=== PATIENT | female | born 1980 | race Caucasian/White ===

== ENCOUNTER 2017-02-24 06:08 | Emergency (ER) | payer MEDICAID ==
[~2017-02-24] VITALS: Ht 162.6 cm; Wt 73.0 kg
[2017-02-24 06:11] VITALS: Ht 162.6 cm; Wt 73.0 kg
[2017-02-24] MEDS ORDERED: morphine 2 MG INJ IV STA (06:38)
[2017-02-24] MEDS ORDERED: ONDANSETRON 4 MG INJ IV STA (06:38)
[2017-02-24 07:24] LABS: ADD SCAN DIFF NO
[2017-02-24 07:50] LABS: BASOPHILS % 0.4 % (0.0-2.0); EOSINOPHILS # 0.6 10^3/ul (0.0-0.5); EOSINOPHILS % 6.2 % (0.0-7.0); HEMATOCRIT 34.5 % (37.0-47.0); LYMPHOCYTES # 2.8 10^3/ul (0.8-2.9); LYMPHOCYTES % 31.5 % (15.0-51.0); MEAN CORPUSCULAR HEMOGLOBIN 27.1 pg (29.0-33.0); MEAN CORPUSCULAR HGB CONC 31.9 g/dl (32.0-37.0); MEAN PLATELET VOLUME 9.2 fl (7.4-10.4); MONOCYTE # 0.6 10^3/ul (0.3-0.9); MONOCYTES % 6.5 % (0.0-11.0); NEUTROPHIL # 4.9 10^3/ul (1.6-7.5); PLATELET COUNT 405 10^3/UL (140-415); RED BLOOD COUNT 4.06 10^6/ul (4.20-5.40); WHITE BLOOD COUNT 8.9 10^3/ul (4.8-10.8)
[2017-02-24 07:56] LABS: ADD UMIC YES; ALBUMIN 4.8 g/dl (3.3-4.9); ALBUMIN/GLOBULIN RATIO 1.54; CALCIUM 8.7 mg/dl (8.4-10.2); CREATININE 0.68 mg/dl (0.44-1.00); POTASSIUM 3.6 mmol/L (3.5-5.1); TOTAL PROTEIN 7.9 g/dl (6.1-8.1); UR ASCORBIC ACID NEGATIVE (NEGATIVE); UR BACTERIA FEW /HPF (NONE SEEN); UR BILIRUBIN (Dip) NEGATIVE (NEGATIVE); UR BLOOD (Dip) 3+ mg/dL (NEGATIVE); UR CLARITY SLIGHTLY CLOUDY (CLEAR); UR COLOR YELLOW (YELLOW); UR GLUCOSE (Dip) NEGATIVE (NEGATIVE); UR KETONES (Dip) NEGATIVE (NEGATIVE); UR LEUKOCYTE ESTERASE (Dip) 1+ Leu/ul (NEGATIVE); UR NITRITE (Dip) POSITIVE (NEGATIVE); UR RBC 4 /HPF (0-5); UR SPECIFIC GRAVITY (Dip) 1.026 (1.003-1.030); UR TOTAL PROTEIN (Dip) NEGATIVE (NEGATIVE); UR UROBILINOGEN (Dip) NEGATIVE (NEGATIVE)
[2017-02-24] MEDS ORDERED: SOD CHLORIDE 0.9% 1,000 ML IV ONE (08:03)
--- NOTE | 2017-02-24 08:03 | RADRPT ---
PROCEDURE: ULTRASOUND LIMITED ABDOMEN CLINICAL INDICATION: 36-year-old female with abdominal pain. TECHNIQUE: Multiple sonographic of the right upper quadrant of the abdomen were obtained. The imag es were reviewed on a PACS workstation. COMPARISON: None. FINDINGS: The pancreas is partially visualized and is otherwise without abnormal echogenicity. The liver displays normal echogenicity. The liver measures 18.9 cm in length. No evidence of intrah epatic biliary ductal dilatation is seen. The portal and hepatic veins are unremarkable. The gallbladder retains a couple of shadowing gallstones. The gallbladder wall is mildly thickened measuring 3.9 mm. No pericholecystic fluid is seen. The common bile duct measures 5.4 mm and is not dilated. The right kidney displays normal echogenicity. The right kidney measures 11.5 x 4.3 x 4.0 cm. No margie iectasis or hydronephrosis is seen. No free fluid is seen. IMPRESSION: Cholelithiasis with mildly thickened gallbladder wall. .Micky Barrett MD, MD Date Time Electronically viewed and signed by .Micky Barrett MD, on 02/24/2017 08:02 .M/
[2017-02-24] MEDS ORDERED: DICLOFENAC SODIUM 37.5 MG/ML VIAL IV STA (08:12)
[2017-02-24] MEDS ORDERED: CEFTRIAXONE 1 GM/50 ML (PMX) 50 ML IVPB ONE (08:30)
[2017-02-24] MEDS ORDERED: TRAM50TA2 PO (09:09)
[2017-02-24] MEDS ORDERED: CIPR500T4 PO (09:09)
--- NOTE | 2017-02-24 09:18 | ERD ---
ER Documentation Chief Complaint Date/Time DATE: 02/24/17 TIME: 09:15 Chief Complaint upper abd pain radaiting to back x 2 days HPI This 36-year-old female complains of a 2 day history of abdominal pain. She points to the epigastric area and states that it feels that it radiates from the back. She points to the upper right and upper left abdomen as the primary source of pain although appears to be more on the left. She denies any fever nausea vomiting or urinary complaints. ROS All systems reviewed and are negative except as per history of present illness. Medications Home Meds Active Scripts Ciprofloxacin Hcl* (Ciprofloxacin Hcl*) 500 Mg Tablet, 500 MG PO BID for 10 Days , TAB Prov:NEL HALL MD 02/24/17 Tramadol HCl (Tramadol HCl) 50 Mg Tablet, 50 MG PO Q4 Y for PAIN, #15 TAB Prov:NEL HALL MD 02/24/17 Allergies Allergies: Coded Allergies: No Known Allergy (Unverified , 02/24/17) PMhx/Soc Medical and Surgical Hx: pt denies Surgical Hx Hx Respiratory Disorders: Yes (ASTHMA ) Hx Alcohol Use: No Hx Substance Use: No Hx Tobacco Use: No Smoking Status: Never smoker Physical Exam Vitals Vital Signs Date Time Temp Pulse Resp B/P Pulse Ox O2 Delivery O2 Flow Rate FiO2 02/24/17 06:11 97.8 82 20 148/90 100 Physical Exam Const: [] Alert, [id number] per Head: Atraumatic Eyes: Normal Conjunctiva ENT: Normal External Ears, Nose and Mouth. Neck: Full range of motion..~ No meningismus. Resp: Clear to auscultation bilaterally Cardio: Regular rate and rhythm, no murmurs Abd: Soft, tenderness primarily in the left upper abdomen possibly the left lateral abdomen. Mild right upper quadrant tenderness. No tenderness at McBurney's point no rebound., non distended. Normal bowel sounds Skin: No petechiae or rashes Back: No midline or flank tenderness Ext: No cyanosis, or edema Neur: Awake and alert Psych: Normal Mood and Affect Result Diagram: 02/24/17 0650 02/24/17 0650 Results 24 hrs Laboratory Tests Test 02/24/17 06:50 White Blood Count 8.910^3/ul Red Blood Count 4.0610^6/ul Hemoglobin 11.0g/dl Hematocrit 34.5% Mean Corpuscular Volume 85.0fl Mean Corpuscular Hemoglobin 27.1pg Mean Corpuscular Hemoglobin Concent 31.9g/dl Red Cell Distribution Width 14.0% Platelet Count 87301^3/UL Mean Platelet Volume 9.2fl Neutrophils % 55.0% Lymphocytes % 31.5% Monocytes % 6.5% Eosinophils % 6.2% Basophils % 0.4% Nucleated Red Blood Cells % 0.0/100WBC Neutrophils # 4.910^3/ul Lymphocytes # 2.810^3/ul Monocytes # 0.610^3/ul Eosinophils # 0.610^3/ul Basophils # 0.010^3/ul Nucleated Red Blood Cells # 0.010^3/ul Urine Color YELLOW Urine Clarity SLIGHTLY CLOUDY Urine pH 5.0 Urine Specific [place] 1.026 Urine Ketones NEGATIVEmg/dL Urine Nitrite POSITIVEmg/dL Urine Bilirubin NEGATIVEmg/dL Urine Urobilinogen NEGATIVEmg/dL Urine Leukocyte Esterase 1+Christiano/ul Urine Microscopic RBC 4/HPF Urine Microscopic WBC 10/HPF Urine Bacteria FEW/HPF Urine Hemoglobin 3+mg/dL Urine Glucose NEGATIVEmg/dL Urine Total Protein NEGATIVEmg/dl Sodium Level 139mmol/L Potassium Level 3.6mmol/L Chloride Level 104mmol/L Carbon Dioxide Level 27mmol/L Anion Gap 12 Blood Urea Nitrogen 10mg/dl Creatinine 0.68mg/dl Glucose Level 104mg/dl Calcium Level 8.7mg/dl Total Bilirubin 0.0mg/dl Direct Bilirubin 0.00mg/dl Indirect Bilirubin 0.0mg/dl Aspartate Amino Transf (AST/SGOT) 15IU/L Alanine Aminotransferase (ALT/SGPT) 20IU/L Alkaline Phosphatase 88IU/L Total Protein 7.9g/dl Albumin 4.8g/dl Globulin 3.10g/dl Albumin/Globulin Ratio 1.54 Lipase 116U/L Current Medications Medications (Trade) Dose Ordered Sig/Sushma Route PRN Reason Start Time Stop Time Status Last Admin Dose Admin Morphine Sulfate (morphine) 2 mg ONCE STAT IV 02/24/17 06:38 02/24/17 06:40 DC 02/24/17 06:52 Ondansetron HCl 4 mg 4 mg ONCE STAT IV 02/24/17 06:38 02/24/17 06:40 DC 02/24/17 06:52 Ceftriaxone Sodium 50 ml @ 100 mls/hr ONCE ONCE IVPB 02/24/17 08:30 02/24/17 08:59 DC 02/24/17 08:10 Sodium Chloride (NS) 1,000 ml @ 0 mls/hr Q0M ONCE IV 02/24/17 08:03 02/24/17 08:05 DC 02/24/17 08:09 Diclofenac Sodium (Dyloject) 37.5 mg ONCE STAT IV 02/24/17 08:12 02/24/17 08:13 DC 02/24/17 08:33 Procedures/MDM CBC shows normal white blood cell count and hemoglobin of 11. CMP and lipase is normal. Urine shows positive leukocytes, nitrites, bacteria and white blood cells. Patient was given 1 L normal saline IV, Tylenol 650 mg by mouth AND DYLOJECT 37.5 IV as well as morphine 2 mg IV initially. After review of urine patient was given Rocephin 1 g IV. Right upper quadrant ultrasound shows gallstones with mild gallbladder wall thickening. Serial abdominal exam shows persistent left upper quadrant tenderness although mild. She has some minimal right upper quadrant tenderness without exquisite Butts sign. Patient presents with upper abdominal pain of uncertain etiology for last 2 days. She does have gallstones with possible gallbladder wall thickening but no additional signs to suggest cholecystitis such as leukocytosis or transaminitis or signs of obstruction. Should she has definite signs of UTI which may be a cause of her pain. Patient does not appear to have signs and symptoms of cholecystitis warranting further evaluation will be monitored closely at home and treated with tramadol and Cipro. She is advised to drink clear fluids and will be referred to [facility] for primary care. She is advised to return for fevers, vomiting, worsening localized abdominal pain especially in the right upper quadrant or lower abdomen. The patient was stable with no new complaints during the ER course. Clinically, there is no current evidence to suggest meningitis, sepsis, acute abdomen, pneumonia, acute coronary syndrome, pulmonary embolism, or any other emergent condition appearing to require further evaluation or hospitalization. The patient should certainly return for any new or worsening symptoms per the aftercare instructions. They should otherwise follow-up with her primary care doctor for reevaluation this week. Departure Diagnosis: Primary Impression: Gallstones Additional Impressions: UTI (urinary tract infection) Urinary tract infection type: acute cystitis Hematuria presence: without hematuria Qualified Code: N30.00 - Acute cystitis without hematuria Abdominal pain Abdominal location: upper abdomen, unspecified Qualified Code: R10.10 - Pain of upper abdomen Condition: Stable Patient Instructions: Abdominal Pain, What Are Gallstones?, Understanding Urinary Tract Infections (UTIs) Referrals: WALDEMAR PEARSON MD, KAMBIZ M.D. LOMIS, [place] MD [facility] () Usted se kaufman hecho un examen mdico de control que le indica que no est en tevin condicin que requiera tratamiento urgente en el Departamento de Emergencia. Un estudio ms profundo y el tratamiento de lima condicin pueden esperar sin ningn riesgo hasta que usted sea atendida/o en el consultorio de lima mdico o tevin cl barry. Es responsabilidad suya arreglar tevin franklin para el seguimiento del zaki. MANEJO DE CONDICIONES NO URGENTES EN EL FUTURO 1) Si usted tiene un mdico de atencin primaria: Usted debera llamar a lima mdico de atencin primaria antes de venir al departamento de emergencia. Despus de las horas de consultorio, lima doctor o lima asociado/a est disponible por telfono. El mdico o enfermero de alena en el servicio telefnico puede asesorarle por harjinder medio para atender el problema, o zaki contrario se puede programar tevin franklin. 2) Si usted no tiene un mdico de atencin primaria: Llame al mdico o clnica de referencia que aparece abajo geraldo las horas de consultorio para hacer tevin franklin para que le vean. CLINICAS: [facility] [phone] [address] [facility] 917 [phone] [address] [facility] 861 [phone] [facility] [phone] [place] [id number] [phone] [facility]. [phone] [address] Additional Instructions: TIENE INFECCION EN ORINA Y PIEDRAS EN VESICULA. VAMOS A TRATAR PARA INFECCION. Cheque otro vez con lima doctor primario en el proximo negrete or regresa para mas o nueva simptomas. RECOMIENDO UN CIRUJANO PARA PIEDRAS. REGRESA PARA FIEBRE, MAS DOLOR , NUEVA SIMPTOMAS. NEL HALL MD Feb 24, 2017 09:18
[2017-02-24] MEDS ORDERED: ALBU18HF INHALATION (09:39)
[2017-02-24 09:43] VITALS: BP 113/65; PULSE 86; RESP 16
== END 2017-02-24 09:40 | disposition home or self-care (01) ==
LOC: FTE 06:08
DX: K80.20 Calculus of gallbladder without cholecystitis without obstruction (principal); N30.00 Acute cystitis without hematuria; R10.12 Left upper quadrant pain; J45.909 Unspecified asthma, uncomplicated
CPT/HCPCS: 36415; 76705; 80053; 81001; 83690; 85025; 96374; 96375; J0696; J2270; J2405; J7030; Z7502; Z7610

== ENCOUNTER 2017-03-08 23:36 | Emergency (ER) | payer MEDICAID ==
[~2017-03-08] VITALS: Ht 165.1 cm; Wt 71.5 kg
[~2017-03-08 23:36] MED LIST: ALBU18HF INHALATION; CIPR500T4 PO; TRAM50TA2 PO
[2017-03-08 23:44] VITALS: Ht 165.1 cm; Wt 71.5 kg
--- NOTE | 2017-03-09 00:12 | ERA ---
ER Documentation Chief Complaint Date/Time DATE: 03/09/17 TIME: 00:12 Chief Complaint swelling/pain anterior neck x 1 day. no sob HPI The patient is a 36-year-old female, presenting to the ER because of swollen anterior neck for 1 day, sore throat, intermittent cough, left ear pain for 1 day. She has similar symptoms previously, denies fever, chills, chest pain, dyspnea, abdominal pain, vomiting, dysuria, diarrhea. She denies any weight loss or weight gain recently. She does not smoke nor drink, denies any history of thyroid disease in the family Past medical history: Cholelithiasis, asthma Past surgical history: None ROS All systems reviewed and are negative except as per history of present illness. Medications Home Meds Active Scripts Albuterol Sulfate* (Ventolin HFA*) 18 Gm Hfa.aer.ad, 2 PUFF INHALATION Q4H for 5 Days, #1 INHALER Prov:NEL HALL MD 02/24/17 Ciprofloxacin Hcl* (Ciprofloxacin Hcl*) 500 Mg Tablet, 500 MG PO BID for 10 Days , TAB Prov:NEL HALL MD 02/24/17 Tramadol HCl (Tramadol HCl) 50 Mg Tablet, 50 MG PO Q4 Y for PAIN, #15 TAB Prov:NEL HALL MD 02/24/17 Allergies Allergies: Coded Allergies: No Known Allergy (Unverified , 03/08/17) PMhx/Soc Medical and Surgical Hx: pt denies Surgical Hx Hx Respiratory Disorders: Yes (ASTHMA ) Hx Alcohol Use: No Hx Substance Use: No Hx Tobacco Use: No Smoking Status: Never smoker Physical Exam Vitals Vital Signs Date Time Temp Pulse Resp B/P Pulse Ox O2 Delivery O2 Flow Rate FiO2 03/08/17 23:44 97.6 95 20 120/80 99 Physical Exam Const: No acute distress. Head: Atraumatic. Eyes: Normal Conjunctiva. ENT: Normal External Ears, Nose and Mouth. Neck: Full range of motion. No meningismus. Edematous anterior neck, mild tenderness Resp: Clear to auscultation bilaterally. Cardio: Regular rate and rhythm. Abd: Soft, non distended, normal bowel sounds, non tender. Skin: No petechiae or rashes. Back: No midline or flank tenderness. Ext: No cyanosis, or edema. Neur: Awake and alert. No focal deficit Psych: Normal Mood and Affect. Result Diagram: 03/09/17 0055 03/09/17 0055 Results 24 hrs Laboratory Tests Test 03/09/17 00:55 White Blood Count 11.710^3/ul Red Blood Count 4.2510^6/ul Hemoglobin 11.8g/dl Hematocrit 35.7% Mean Corpuscular Volume 84.0fl Mean Corpuscular Hemoglobin 27.8pg Mean Corpuscular Hemoglobin Concent 33.1g/dl Red Cell Distribution Width 13.9% Platelet Count 49263^3/UL Mean Platelet Volume 9.2fl Neutrophils % 59.9% Lymphocytes % 25.0% Monocytes % 8.0% Eosinophils % 6.4% Basophils % 0.4% Nucleated Red Blood Cells % 0.0/100WBC Neutrophils # 7.010^3/ul Lymphocytes # 2.910^3/ul Monocytes # 0.910^3/ul Eosinophils # 0.810^3/ul Basophils # 0.110^3/ul Nucleated Red Blood Cells # 0.010^3/ul Sodium Level 140mmol/L Potassium Level 3.9mmol/L Chloride Level 96mmol/L Carbon Dioxide Level 30mmol/L Anion Gap 18 Blood Urea Nitrogen 11mg/dl Creatinine 0.84mg/dl Glucose Level 89mg/dl Calcium Level 9.6mg/dl Thyroid Stimulating Hormone (TSH) 2.970MIU/L Procedures/[place] [id number] Radiology Main Line: [phone] DIAGNOSTIC IMAGING REPORT Patient: LADY RAY : 1980 Age: 36 Sex: F MR #: [id number] DOS: 03/09/17 0020 Ordering MD: COLT URIBE MD Location: [facility] Room/Bed: PROCEDURE: Ultrasound soft tissue neck CLINICAL INDICATION: Swollen neck TECHNIQUE: Ultrasound of the right and left neck was performed. COMPARISON: None available FINDINGS: There is appearance of a complex cystic left thyroid mass or immediately adjacent masses measuring 6.6 x 3 x 3.6 cm with the largest cystic component containing internal echoes measuring 3.6 x 3 x 3.9 cm with vascular flow in the solid component and the suggestion of calcifications in the solid component. IMPRESSION: Complex cystic and solid left thyroid mass described above. Consider biopsy. RPTAT: HJES .Salvador aCrver MD, MD Date Time Electronically viewed and signed by .Salvador Carver MD, MD on 03/09/2017 01:15 .S/ CC: COLT URIBE MD MEDICAL MAKING DECISION: The patient is a 36-year-old female, presenting with acute thyroid mass. She is stable for outpatient follow-up The differential diagnoses considered include but are not limited to malignancy , goiter, infection, abscess Departure Diagnosis: Primary Impression: Thyroid mass of unclear etiology Additional Impression: Anemia Condition: Good Comments I discussed the findings with the patient. 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 I instructed the patient through a nursing staff who speaks fluent Latvian and she understands the importance of follow-up COLT URIBE MD Mar 09, 2017 00:12
--- NOTE | 2017-03-09 01:15 | RADRPT ---
PROCEDURE: Ultrasound soft tissue neck CLINICAL INDICATION: Swollen neck TECHNIQUE: Ultrasound of the right and left neck was performed. COMPARISON: None available FINDINGS: There is appearance of a complex cystic left thyroid mass or immediately adjacent masses measuring 6 .6 x 3 x 3.6 cm with the largest cystic component containing internal echoes measuring 3.6 x 3 x 3.9 cm with vascular flow in the solid component and the suggestion of calcifications in the solid comp onent. IMPRESSION: Complex cystic and solid left thyroid mass described above. Consider biopsy. RPTAT: HJES .Salvador Carver MD, MD Date Time Electronically viewed and signed by .Salvador Carver MD, MD on 03/09/2017 01:15 .S/
[2017-03-09 01:28] LABS: ADD SCAN DIFF NO
[2017-03-09 01:46] LABS: BASOPHIL # 0.1 10^3/ul (0.0-0.1); BASOPHILS % 0.4 % (0.0-2.0); EOSINOPHILS # 0.8 10^3/ul (0.0-0.5); EOSINOPHILS % 6.4 % (0.0-7.0); HEMATOCRIT 35.7 % (37.0-47.0); HEMOGLOBIN 11.8 g/dl (12.0-16.0); LYMPHOCYTES # 2.9 10^3/ul (0.8-2.9); MEAN CORPUSCULAR HEMOGLOBIN 27.8 pg (29.0-33.0); MEAN CORPUSCULAR HGB CONC 33.1 g/dl (32.0-37.0); MEAN PLATELET VOLUME 9.2 fl (7.4-10.4); MONOCYTE # 0.9 10^3/ul (0.3-0.9); NEUTROPHILS % 59.9 % (39.0-77.0); PLATELET COUNT 384 10^3/UL (140-415); RED BLOOD COUNT 4.25 10^6/ul (4.20-5.40); RED CELL DISTRIBUTION WIDTH 13.9 % (11.5-14.5); WHITE BLOOD COUNT 11.7 10^3/ul (4.8-10.8)
[2017-03-09 01:51] LABS: CALCIUM 9.6 mg/dl (8.4-10.2); CREATININE 0.84 mg/dl (0.44-1.00); POTASSIUM 3.9 mmol/L (3.5-5.1)
[2017-03-09 02:22] LABS: THYROID STIMULATING HORMONE 2.97 MIU/L (0.465-4.680)
[2017-03-09 03:35] VITALS: BP 128/83; PULSE 93; RESP 20
== END 2017-03-09 03:36 | disposition home or self-care (01) ==
LOC: FTE 23:36
DX: E07.89 Other specified disorders of thyroid (principal); D64.9 Anemia, unspecified; J45.909 Unspecified asthma, uncomplicated
CPT/HCPCS: 76536; 80048; 84443; 85025; Z7502

== ENCOUNTER 2017-05-10 04:40 | Emergency (ER) | payer SELFPAY ==
[~2017-05-10] VITALS: Ht 165.1 cm; Wt 72.5 kg
[2017-05-10 04:49] VITALS: Ht 165.1 cm; Wt 72.5 kg
[2017-05-10] MEDS ORDERED: KETOROLAC 15 MG INJ IV STA (06:24)
[2017-05-10] MEDS ORDERED: SOD CHLORIDE 0.9% 1,000 ML IV STA (06:24)
[2017-05-10] MEDS ORDERED: ONDANSETRON 4 MG INJ IV STA (06:24)
[2017-05-10 06:53] LABS: BASOPHIL # 0.1 10^3/ul (0.0-0.1); BASOPHILS % 0.5 % (0.0-2.0); EOSINOPHILS # 0.4 10^3/ul (0.0-0.5); EOSINOPHILS % 4.7 % (0.0-7.0); LYMPHOCYTES # 2.1 10^3/ul (0.8-2.9); LYMPHOCYTES % 23.1 % (15.0-51.0); MEAN CORPUSCULAR HEMOGLOBIN 27.8 pg (29.0-33.0); MEAN CORPUSCULAR HGB CONC 33.3 g/dl (32.0-37.0); MEAN CORPUSCULAR VOLUME 83.3 fl (82.0-101.0); MEAN PLATELET VOLUME 9.4 fl (7.4-10.4); MONOCYTE # 0.6 10^3/ul (0.3-0.9); MONOCYTES % 6.9 % (0.0-11.0); NEUTROPHILS % 64.6 % (39.0-77.0); PLATELET COUNT 448 10^3/UL (140-415); RED BLOOD COUNT 4.32 10^6/ul (4.20-5.40); RED CELL DISTRIBUTION WIDTH 14.1 % (11.5-14.5); WHITE BLOOD COUNT 9.1 10^3/ul (4.8-10.8)
[2017-05-10 07:22] LABS: ALBUMIN 4.5 g/dl (3.3-4.9); ALBUMIN/GLOBULIN RATIO 1.15; BILIRUBIN,INDIRECT 0.2 mg/dl (0-1.1); BILIRUBIN,TOTAL 0.2 mg/dl (0.2-1.3); CALCIUM 8.5 mg/dl (8.4-10.2); CREATININE 0.6 mg/dl (0.44-1.00); POTASSIUM 5.1 mmol/L (3.5-5.1); TOTAL PROTEIN 8.4 g/dl (6.1-8.1)
--- NOTE | 2017-05-10 07:59 | RADRPT ---
PROCEDURE: US Abdomen (right upper quadrant). CLINICAL INDICATION: Abdominal pain. TECHNIQUE: Multiple real-time longitudinal and transverse images of the right upper quadrant of th e abdomen were acquired utilizing a curved array transducer. Images were reviewed on a high-resoluti on PACS workstation. COMPARISON: Right upper quadrant ultrasound dated 02/24/2017 FINDINGS: The liver is normal in size and demonstrates normal echogenicity. No focal intrahepatic mass is id entified. The gallbladder contains stones. The gallbladder wall is prominent. No intra or extrahep atic biliary dilatation is seen. The common bile duct measures 4.5 mm in maximal dimension. The por reji and hepatic veins are patent demonstrating normal directional flow. The visualized portions of t he pancreas are unremarkable with obscuration of the tail of the pancreas. No free fluid is identif ied. The right kidney measures 11.8 cm in length. There is normal echogenicity within the right kidney. There is no perinephric fluid collection. No hydronephrosis, mass, or calculus is seen. IMPRESSION: 1. Cholelithiasis. The gallbladder wall is upper limits of normal in thickness. No significant in terval change. 2. Otherwise, unremarkable right upper quadrant ultrasound. RPTAT: HH .Alberta Renteria MD, Date Time Electronically viewed and signed by .Alberta Renteria MD, on 05/10/2017 07:58 .G/
[2017-05-10] MEDS ORDERED: OXYC-279 PO (08:23)
[2017-05-10] MEDS ORDERED: ONDA4TAB8 PO (08:23)
[2017-05-10] MEDS ORDERED: AZIT500T3 PO (08:23)
[2017-05-10] MEDS ORDERED: CEFTRIAXONE 1 GM INJ IM ONE (08:30)
--- NOTE | 2017-05-10 09:22 | ERA ---
ER Documentation Chief Complaint Date/Time DATE: 05/10/17 TIME: 09:05 Chief Complaint abd pain x 1 day. n/v -diarrhea HPI 36-year-old woman with a history of cholelithiasis presents with epigastric and right upper quadrant abdominal pain similar previous episodes, she states she has these pain episodes about once per month for the last few years. She is also had some nausea no vomiting or diarrhea, no hemoptysis, no blood per rectum or melena. Patient's was recently diagnosed with sexually transmitted bacterial urethritis and was treated with antibiotics, patient states she has not had sex in about 1 month, And denies vaginal discharge. ROS All systems reviewed and are negative except as per history of present illness. Medications Home Meds Active Scripts Azithromycin* (Zithromax*) 500 Mg Tablet, 1000 MG PO ONCE, #1 TAB Prov:CYNDEE LOMBARDI MD 05/10/17 Ondansetron Hcl* (Zofran*) 4 Mg Tablet, 4 MG PO TID for VOMITTING, #15 TAB Prov:CYNDEE LOMBARDI MD 05/10/17 Oxycodone HCl/Acetaminophen (Percocet 5-325 mg Tablet) 1 Each Tablet, 1 EACH PO TID for PAIN, #12 TAB Prov:CYNDEE LOMBARDI MD 05/10/17 Albuterol Sulfate* (Ventolin HFA*) 18 Gm Hfa.aer.ad, 2 PUFF INHALATION Q4H for 5 Days, #1 INHALER Prov:NEL HALL MD 02/24/17 Ciprofloxacin Hcl* (Ciprofloxacin Hcl*) 500 Mg Tablet, 500 MG PO BID for 10 Days , TAB Prov:NEL HALL MD 02/24/17 Tramadol HCl (Tramadol HCl) 50 Mg Tablet, 50 MG PO Q4 Y for PAIN, #15 TAB Prov:NEL HALL MD 02/24/17 Allergies Allergies: Coded Allergies: No Known Allergy (Unverified , 05/10/17) PMhx/Soc Cholelithiasis Hx Respiratory Disorders: Yes (ASTHMA ) Hx Alcohol Use: No Hx Substance Use: No Hx Tobacco Use: No Smoking Status: Never smoker FmHx Family History: No diabetes Physical Exam Vitals Vital Signs Date Time Temp Pulse Resp B/P Pulse Ox O2 Delivery O2 Flow Rate FiO2 05/10/17 07:17 67 18 119/85 97 Room Air 05/10/17 04:49 98.5 102 18 159/90 97 Physical Exam GENERAL: Well-developed, well-nourished, well-hydrated, in no apparent distress , looks nontoxic in appearance HEENT: Moist mucous membranes, pink conjunctiva, no cervical spine tenderness or step-off deformities, no goiter, no jaundice or icterus, extraocular movements intact without pain. No submandibular induration, and no pharyngeal erythema NEURO: Alert and oriented 3, cranial nerves II through XII intact bilaterally, pupils equal round reactive to light, no focal deficits or facial asymmetry, sensation intact distally Strength 5/5 in upper and lower extremities bilaterally CARDIAC: Regular rate and rhythm, no murmurs rubs or gallops LUNGS: Clear bilaterally no wheezing crackles or stridor ABDOMEN: Soft nontender, no guarding, no rigidity, no rebound, no psoas sign no obturator sign. Normoactive bowel sounds SKIN: Warm and dry to touch, no abrasions, contusions, or hematomas, no lacerations, no ecchymosis, no target lesions, and without ulcers EXTREMITIES: No clubbing cyanosis or edema, calves are bilaterally symmetrical, no Homans sign, no popliteal cord sign. Distal pulses equal and bilateral PSYCH: Normal affect without agitation or irritability Result Diagram: 05/10/17 0630 05/10/17 0630 Results 24 hrs Laboratory Tests Test 05/10/17 06:30 White Blood Count 9.110^3/ul Red Blood Count 4.3210^6/ul Hemoglobin 12.0g/dl Hematocrit 36.0% Mean Corpuscular Volume 83.3fl Mean Corpuscular Hemoglobin 27.8pg Mean Corpuscular Hemoglobin Concent 33.3g/dl Red Cell Distribution Width 14.1% Platelet Count 06169^3/UL Mean Platelet Volume 9.4fl Neutrophils % 64.6% Lymphocytes % 23.1% Monocytes % 6.9% Eosinophils % 4.7% Basophils % 0.5% Nucleated Red Blood Cells % 0.0/100WBC Neutrophils # (Manual) 5.910^3/ul Lymphocytes # 2.110^3/ul Monocytes # 0.610^3/ul Eosinophils # 0.410^3/ul Basophils # 0.110^3/ul Nucleated Red Blood Cells # 0.010^3/ul Sodium Level 138mmol/L Potassium Level 5.1mmol/L Chloride Level 103mmol/L Carbon Dioxide Level 27mmol/L Anion Gap 13 Blood Urea Nitrogen 9mg/dl Creatinine 0.60mg/dl Glucose Level 107mg/dl Calcium Level 8.5mg/dl Total Bilirubin 0.2mg/dl Direct Bilirubin 0.00mg/dl Indirect Bilirubin 0.2mg/dl Aspartate Amino Transf (AST/SGOT) 40IU/L Alanine Aminotransferase (ALT/SGPT) 8IU/L Alkaline Phosphatase 98IU/L Total Protein 8.4g/dl Albumin 4.5g/dl Globulin 3.90g/dl Albumin/Globulin Ratio 1.15 Lipase 102U/L Current Medications Medications (Trade) Dose Ordered Sig/Sushma Route PRN Reason Start Time Stop Time Status Last Admin Dose Admin Sodium Chloride (NS) 1,000 ml @ 1,000 mls/hr Q1H STAT IV 05/10/17 06:24 05/10/17 07:23 DC 05/10/17 07:13 Ondansetron HCl (Zofran Inj) 4 mg ONCE STAT IV 05/10/17 06:24 05/10/17 06:27 DC 05/10/17 07:08 Ketorolac Tromethamine (Toradol) 15 mg ONCE STAT IV 05/10/17 06:24 05/10/17 06:27 DC 05/10/17 07:11 Ceftriaxone Sodium (Rocephin) 1 gm ONCE ONCE IM 05/10/17 08:30 05/10/17 08:31 DC 05/10/17 08:47 Procedures/MDM IV line was established 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 Patient was afebrile. I administered 1 L normal saline intravenously, Toradol 15 mg IV, Zofran 4 mg IV , Percocet 1 tablet p.o. with good response. Gallbladder ultrasound was performed revealing cholelithiasis. Please refer to radiologist dictation for full report. CBC and electrolytes are normal, liver function tests were normal. Urinalysis was negative for infection, test was negative. GC chlamydia test was also ordered results are pending and I will follow-up although given her social history she was treated here with antibiotics for suspected sexually transmitted bacterial urethritis. I administered ceftriaxone 1 g IV here in the ER and will be treating her with azithromycin orally as an outpatient. Differential diagnoses considered, included but not limited to acute coronary syndrome, pulmonary embolism, aortic dissection, abdominal aortic aneurysm, sepsis, stroke, meningitis, encephalitis, pneumonia, appendicitis, cholecystitis , bowel obstruction, pyelonephritis, nephrolithiasis, cystitis, as well as metabolic, hematologic, and electrolyte abnormalities. As well as abscess, cellulitis, fractures, and dislocations. Patient feels much better at this time, and vital signs are normal, symptoms have improved. I did give strict instructions to return to the ED if symptoms continue or worsen, patient will otherwise follow-up with primary care physician. Patient understood instructions and agreed to plan. Disclaimer: Inadvertent spelling and grammatical errors are likely due to EHR/ dictation software use and do not reflect on the overall quality of patient care. Also, please note that the electronic time recorded on this note does not necessarily reflect the actual time of the patient encounter. Departure Diagnosis: Primary Impression: Abdominal pain Qualified Code: R10.11 - Right upper quadrant abdominal pain Additional Impression: Cholelithiasis Qualified Code: K80.20 - Calculus of gallbladder without cholecystitis without obstruction Condition: Good Patient Instructions: Biliary Colic With Gallstone (Confirmed) Referrals: DINO OSBORNE M.D., DAVID MD May 10, 2017 09:15
[2017-05-10 10:02] VITALS: BP 117/56; PULSE 65; RESP 16; TEMP 98.2
== END 2017-05-10 10:02 | disposition home or self-care (01) ==
LOC: E/R 04:40
DX: R10.11 Right upper quadrant pain (principal); K80.20 Calculus of gallbladder without cholecystitis without obstruction; J45.909 Unspecified asthma, uncomplicated
CPT/HCPCS: 36415; 76705; 80053; 83690; 85025; 96361; 96372; 96374; 96375; 99285; J0696; J1885; J2405; J7030

== ENCOUNTER 2017-05-22 05:03 | Inpatient (IN) | payer MEDICAID ==
[2017-05-22] VITALS (13 sets, daily range): BP systolic 103–153; BP diastolic 68–97; PULSE 70–92; RESP 17–23; Ht 162.6 cm; Wt 73.5 kg
[~2017-05-22] VITALS: Ht 162.6 cm; Wt 73.5 kg
[~2017-05-22 05:03] MED LIST changes: +AZIT500T3 PO; +ONDA4TAB8 PO; +OXYC-279 PO
[2017-05-22] MEDS ORDERED: ONDANSETRON 4 MG INJ IV STA (06:52)
[2017-05-22] MEDS ORDERED: morphine 4 MG/ML VIAL IV STA (06:52)
[2017-05-22] MEDS ORDERED: ONDANSETRON 4 MG INJ ONE (07:10)
[2017-05-22] MEDS ORDERED: morphine 4 MG/ML VIAL ONE (07:10)
[2017-05-22 07:45] LABS: BASOPHIL # 0.1 10^3/ul (0.0-0.1); BASOPHILS % 0.5 % (0.0-2.0); EOSINOPHILS # 0.5 10^3/ul (0.0-0.5); EOSINOPHILS % 5.4 % (0.0-7.0); HEMATOCRIT 39.5 % (37.0-47.0); HEMOGLOBIN 13.1 g/dl (12.0-16.0); LYMPHOCYTES # 2.3 10^3/ul (0.8-2.9); LYMPHOCYTES % 24.1 % (15.0-51.0); MEAN CORPUSCULAR HEMOGLOBIN 27.8 pg (29.0-33.0); MEAN CORPUSCULAR HGB CONC 33.2 g/dl (32.0-37.0); MEAN CORPUSCULAR VOLUME 83.9 fl (82.0-101.0); MEAN PLATELET VOLUME 9.2 fl (7.4-10.4); MONOCYTE # 0.6 10^3/ul (0.3-0.9); MONOCYTES % 6.5 % (0.0-11.0); NEUTROPHIL # 6.1 10^3/ul (1.6-7.5); NEUTROPHILS % 63.1 % (39.0-77.0); PLATELET COUNT 371 10^3/UL (140-415); RED BLOOD COUNT 4.71 10^6/ul (4.20-5.40); RED CELL DISTRIBUTION WIDTH 13.8 % (11.5-14.5); WHITE BLOOD COUNT 9.6 10^3/ul (4.8-10.8)
[2017-05-22 07:49] LABS: ADD UMIC NO; UR ASCORBIC ACID NEGATIVE (NEGATIVE); UR BILIRUBIN (Dip) NEGATIVE (NEGATIVE); UR BLOOD (Dip) NEGATIVE (NEGATIVE); UR CLARITY CLEAR (CLEAR); UR COLOR YELLOW (YELLOW); UR GLUCOSE (Dip) NEGATIVE (NEGATIVE); UR KETONES (Dip) NEGATIVE (NEGATIVE); UR LEUKOCYTE ESTERASE (Dip) NEGATIVE Leu/ul (NEGATIVE); UR NITRITE (Dip) NEGATIVE (NEGATIVE); UR SPECIFIC GRAVITY (Dip) 1.013 (1.003-1.030); UR TOTAL PROTEIN (Dip) NEGATIVE (NEGATIVE); UR UROBILINOGEN (Dip) NEGATIVE (NEGATIVE)
[2017-05-22 08:24] LABS: ALBUMIN 4.4 g/dl (3.3-4.9); ALBUMIN/GLOBULIN RATIO 1.12; CALCIUM 8.7 mg/dl (8.4-10.2); CREATININE 0.56 mg/dl (0.44-1.00); POTASSIUM 4.2 mmol/L (3.5-5.1); TOTAL PROTEIN 8.3 g/dl (6.1-8.1)
--- NOTE | 2017-05-22 09:14 | RADRPT ---
PROCEDURE: US Abdomen. CLINICAL INDICATION: abdominal pain TECHNIQUE: Multiple real-time images were acquired of the patient's right upper quadrant abdomen a nd retroperitoneum utilizing a high resolution transducer. COMPARISON: US ABDOMEN 05/10/2017 FINDINGS: The liver demonstrates normal echogenicity. The liver is normal in size and no focal solid lesions are seen. The liver measures 16.1 cm in length. The portal vein is patent with normal direction of f low. No intrahepatic biliary dilatation is seen. Multiple stones are seen within the gallbladder. The gallbladder wall is thickened, measuring 4.6 mm . There is mild pericholecystic fluid noted. The common bile duct measures 4 mm. The visualized portions of the pancreas are unremarkable. The tail of the pancreas is not seen. No free fluid is identified. The right kidney is normal in size, and demonstrate normal echogenicity and cortical thickness. The right kidney measures 11.3 cm in long dimension. There is no evidence of hydronephrosis. There are no kidney stones. RPTAT: AA IMPRESSION: Cholelithiasis with gallbladder wall thickening and pericholecystic fluid may represent acute cholec ystitis. This could be confirmed with a HIDA scan if clinically indicated.. .Gordy Guzman MD, Date Time Electronically viewed and signed by .Gordy Guzman MD, MD on 05/22/2017 09:13 .S/
[2017-05-22] MEDS ORDERED: KETOROLAC 30 MG INJ IV STA (09:59)
[2017-05-22] MEDS ORDERED: SOD CHLORIDE 0.9% 1,000 ML IV ONE (10:00)
[2017-05-22] MEDS ORDERED: HYDROmorphONE 1 MG/ML SYG IV STA (10:04)
--- NOTE | 2017-05-22 10:11 | ERD ---
ER Documentation Chief Complaint Date/Time DATE: 05/22/17 TIME: 10:08 Chief Complaint upper abd pain sinc3 3 hours ago HPI Is a 36-year-old female who presents the emergency department today complaining of abdominal pain that started earlier this morning. States she has nausea. States she has a history of gallstones. She also has some chest pain. States she does not have a primary care doctor. Denies fevers or chills. States that she took the medication that she was prescribed on her last visit. ROS All systems reviewed and are negative except as per history of present illness. Medications Home Meds Active Scripts Azithromycin* (Zithromax*) 500 Mg Tablet, 1000 MG PO ONCE, #1 TAB Prov:CYNDEE LOMBARDI MD 05/10/17 Ondansetron Hcl* (Zofran*) 4 Mg Tablet, 4 MG PO TID for VOMITTING, #15 TAB Prov:CYNDEE LOMBARDI MD 05/10/17 Oxycodone HCl/Acetaminophen (Percocet 5-325 mg Tablet) 1 Each Tablet, 1 EACH PO TID for PAIN, #12 TAB Prov:CYNDEE LOMBARDI MD 05/10/17 Albuterol Sulfate* (Ventolin HFA*) 18 Gm Hfa.aer.ad, 2 PUFF INHALATION Q4H for 5 Days, #1 INHALER Prov:NEL HALL MD 02/24/17 Ciprofloxacin Hcl* (Ciprofloxacin Hcl*) 500 Mg Tablet, 500 MG PO BID for 10 Days , TAB Prov:NEL HALL MD 02/24/17 Tramadol HCl (Tramadol HCl) 50 Mg Tablet, 50 MG PO Q4 Y for PAIN, #15 TAB Prov:NEL HALL MD 02/24/17 Allergies Allergies: Coded Allergies: No Known Allergy (Unverified , 05/10/17) PMhx/Soc History of Surgery: No Anesthesia Reaction: No Hx Neurological Disorder: No Hx Respiratory Disorders: No (ASTHMA ) Hx Cardiac Disorders: No Hx Psychiatric Problems: No Hx Miscellaneous Medical Probl: No Hx Alcohol Use: No Hx Substance Use: No Hx Tobacco Use: No Physical Exam Vitals Vital Signs Date Time Temp Pulse Resp B/P Pulse Ox O2 Delivery O2 Flow Rate FiO2 05/22/17 05:20 98.2 81 20 122/62 99 Physical Exam Const: mild distress Head: Atraumatic Eyes: Normal Conjunctiva ENT: Normal External Ears, Nose and Mouth. Neck: Full range of motion..~ No meningismus. Resp: Clear to auscultation bilaterally Cardio: Regular rate and rhythm, no murmurs Abd: Soft, Epigastric and right upper quadrant tenderness, non distended. Normal bowel sounds Skin: No petechiae or rashes Back: No midline or flank tenderness Ext: No cyanosis, or edema Neur: Awake and alert Psych: Normal Mood and Affect Result Diagram: 05/22/1772405/22/1725 Results 24 hrs Laboratory Tests Test 05/22/17 07:15 05/22/17 07:25 Urine Color YELLOW Urine Clarity CLEAR Urine pH 5.0 Urine Specific [place] 1.013 Urine Ketones NEGATIVEmg/dL Urine Nitrite NEGATIVEmg/dL Urine Bilirubin NEGATIVEmg/dL Urine Urobilinogen NEGATIVEmg/dL Urine Leukocyte Esterase NEGATIVELeu/ul Urine Hemoglobin NEGATIVEmg/dL Urine Glucose NEGATIVEmg/dL Urine Total Protein NEGATIVEmg/dl White Blood Count 9.610^3/ul Red Blood Count 4.7110^6/ul Hemoglobin 13.1g/dl Hematocrit 39.5% Mean Corpuscular Volume 83.9fl Mean Corpuscular Hemoglobin 27.8pg Mean Corpuscular Hemoglobin Concent 33.2g/dl Red Cell Distribution Width 13.8% Platelet Count 11090^3/UL Mean Platelet Volume 9.2fl Neutrophils % 63.1% Lymphocytes % 24.1% Monocytes % 6.5% Eosinophils % 5.4% Basophils % 0.5% Nucleated Red Blood Cells % 0.0/100WBC Neutrophils # 6.110^3/ul Lymphocytes # 2.310^3/ul Monocytes # 0.610^3/ul Eosinophils # 0.510^3/ul Basophils # 0.110^3/ul Nucleated Red Blood Cells # 0.010^3/ul Sodium Level 138mmol/L Potassium Level 4.2mmol/L Chloride Level 105mmol/L Carbon Dioxide Level 23mmol/L Anion Gap 14 Blood Urea Nitrogen 10mg/dl Creatinine 0.56mg/dl Glucose Level 90mg/dl Calcium Level 8.7mg/dl Total Bilirubin 0.0mg/dl Direct Bilirubin 0.00mg/dl Indirect Bilirubin 0.0mg/dl Aspartate Amino Transf (AST/SGOT) 16IU/L Alanine Aminotransferase (ALT/SGPT) 19IU/L Alkaline Phosphatase 88IU/L Total Protein 8.3g/dl Albumin 4.4g/dl Globulin 3.90g/dl Albumin/Globulin Ratio 1.12 Lipase 130U/L Current Medications Medications (Trade) Dose Ordered Sig/Sushma Route PRN Reason Start Time Stop Time Status Last Admin Dose Admin Morphine Sulfate (morphine) 4 mg ONCE STAT IV 05/22/17 06:52 05/22/17 06:54 DC 05/22/17 07:17 Ondansetron HCl (Zofran Inj) 4 mg ONCE STAT IV 05/22/17 06:52 05/22/17 06:54 DC 05/22/17 07:16 Ketorolac Tromethamine 30 mg 30 mg ONCE STAT IV 05/22/17 09:59 05/22/17 10:00 Cancel Sodium Chloride (NS) 1,000 ml @ 1,000 mls/hr Q1H ONCE IV 05/22/17 10:00 05/22/17 10:59 DC 05/22/17 06:45 Hydromorphone HCl (Dilaudid) 1 mg ONCE STAT IV 05/22/17 10:04 05/22/17 10:06 DC 05/22/17 10:13 Famotidine (Pepcid) 20 mg ONCE ONCE PO 05/22/17 11:00 05/22/17 11:01 DC 05/22/17 10:45 DIAGNOSTIC IMAGING REPORT Patient: LADY RAY : 1980 Age: 36 Sex: F MR #: [id number] DOS: 05/22/17 0000 Ordering MD: ANGELITO CAVAZOS PA-C Location: E Room/Bed: PROCEDURE: US Abdomen. CLINICAL INDICATION: abdominal pain TECHNIQUE: Multiple real-time images were acquired of the patient's right upper quadrant abdomen and retroperitoneum utilizing a high resolution transducer. COMPARISON: US ABDOMEN 05/10/2017 FINDINGS: The liver demonstrates normal echogenicity. The liver is normal in size and no focal solid lesions are seen. The liver measures 16.1 cm in length. The portal vein is patent with normal direction of flow. No intrahepatic biliary dilatation is seen. Multiple stones are seen within the gallbladder. The gallbladder wall is thickened, measuring 4.6 mm. There is mild pericholecystic fluid noted. The common bile duct measures 4 mm. The visualized portions of the pancreas are unremarkable. The tail of the pancreas is not seen. No free fluid is identified. The right kidney is normal in size, and demonstrate normal echogenicity and cortical thickness. The right kidney measures 11.3 cm in long dimension. There is no evidence of hydronephrosis. There are no kidney stones. RPTAT: AA IMPRESSION: Cholelithiasis with gallbladder wall thickening and pericholecystic fluid may represent acute cholecystitis. This could be confirmed with a HIDA scan if clinically indicated.. .Gordy Guzman MD, MD Date Time Electronically viewed and signed by .Gordy Guzman MD, MD on 05/22/2017 09: 13 .S/ CC: ANGELITO CAVAZOS. CHANO Procedures/MDM Is a 36-year-old female who presents the emergency department today complaining of abdominal pain, nausea and chest pain that started earlier this morning. Upon review of patient's medical record she has known history of gallstones. Patient was last seen here in the emergency department on May 10 and was diagnosed with biliary colic and gallstones at that time. Her ultrasound at that time showed gallbladder wall thickening but no pericholecystic fluid. Today I did repeat laboratory workup as well as imaging. I also obtain an EKG given patient's complaint of chest pain however I feel this is more related to epigastric pain. EKG read and interpreted by Dr. Washington rate [address] elevation. No QT elongation. Normal sinus rhythm. Low suspicion for acute NM, PE, pericarditis Laboratory workup shows she has no elevated white blood cell count. She is not anemic. Platelets are within normal limits. Electrolytes are within normal limits. Glucose within normal limits. Liver enzymes are within normal limits. Bilirubin is not elevated. Lipase is within normal limits. UA Is negative for infection. Urine test is negative. Right upper quadrant ultrasound shows cholelithiasis with gallbladder wall thickening and pericholecystic fluid that may represent acute cholecystitis. Patient symptoms at this time is consistent with acute cholecystitis. I discussed the patient with Dr. Washington and she will be admitted for acute cholecystitis. Any further orders placed will be completed by Dr. Washington or the admitting physician. I have explained results to the patient and she is agreed to stay in the hospital. Patient was given IV fluids, Zofran, morphine here in the emergency department. Pain persisted and was therefore given 1 mg of Dilaudid as well as Pepcid. Departure Diagnosis: Primary Impression: Acute cholecystitis Condition: Fair ANGELITO CAVAZOS PA-C May 22, 2017 10:11
--- NOTE | 2017-05-22 10:36 | QN ---
Documentation Comment My independent concise history is abdominal pain. My pertinent physical exam findings are abdominal pain. The plan is to bed and consultation with Dr. Kearney the surgeon on-call. SARWAT MANDUJANO MD May 22, 2017 10:36
[2017-05-22] MEDS ORDERED: FAMOTIDINE 20 MG TAB PO ONE (11:00)
--- NOTE | 2017-05-22 16:43 | CONS ---
Date/Time of Note Date/Time of Note DATE: 05/22/17 TIME: 16:42 Assessment/Plan Assessment/Plan Additional Assessment/Plan [facility] INPATIENT CONSULTATION NOTE DATE OF SERVICE: 05/22/2017 PLACE OF SERVICE: [facility], emergency department ASSESSMENT AND PLAN: A very-pleasant 36-year-old lady with comorbidity of BMI 27.8 and asthma, presenting for third time through the emergency department with signs and symptoms consistent with pericolic and this admission, with acute cholecystitis. I recommended laparoscopic cholecystectomy and consented the patient for the operation. Note that there is no family present during my discussions with the patient. Patient appeared to understand and agreed with the plans. With above assessment, I've recommended the followin. To the operating room for above Thank you very much for having me involved in the care of this very pleasant patient and wonderful family. If you have any questions, please feel free to contact me at [phone]. Nature of presenting problem: Moderate to high severity Please note that, given the multiple number of diagnoses or management options, the moderate amount and/or complexity of data needed to be reviewed, and moderate to high risk of complications and/or morbidity or mortality, this qualifies as moderate complexity type of decision-making. Disclaimers: 1. Inadvertent spelling and grammatical errors are likely due to electronic health record (EHR)/dictation software use and do not reflect on the quality of delivered patient care. 2. The electronic timestamp recorded on this note does not necessarily reflect the actual date and time of the visit. 3. Portions of this note are created through electronic templates and computer algorithms that may bring in information either from the system or from other physicians and providers that are outside of my control and may not be always accurate. In general (but not always) this happens either in the beginning or at the end of the note. My portions of the gathered data are generally dictated in 1 continuous block of text and entered into one field in the EHR. 4. There may be other unanticipated errors in the note that are outside of my control. I can only attest to the portions of the note that I have created. Updated clinical summary: A very-pleasant 36-year-old lady with comorbidity of BMI 27.8 and asthma, presenting for third time through the emergency department with signs and symptoms consistent with pericolic and this admission, with acute cholecystitis. Comorbidities: 1. Known cholelithiasis and 2 prior ER visits for abdominal pain related to her gallbladder 2. BMI 27.8 3. Asthma CONSULTATION REQUESTED BY: Kyleigh Washington MD HISTORY OF PRESENT ILLNESS: The patient is a very pleasant 36-year-old lady with comorbidity of BMI 27.8 and asthma, presenting for third time through the emergency department with signs and symptoms consistent with pericolic and this admission, with acute cholecystitis. Patient described having 1-2 day history of sharp right upper quadrant abdominal pain without significant radiation, associated with multiple episodes of nausea and vomiting. No diarrhea or constipation. No blood in the stool or urine. Workup in the emergency department demonstrated evidence for cholelithiasis and cholecystitis on right upper quadrant ultrasound. Liver function and injury parameters were normal. White blood cell count was normal. ALLERGIES: NO KNOWN DRUG ALLERGIES MEDICATIONS Documented in the electronic records and reviewed by me. Please see the electronic records for details, as well as details for inpatient medications which were also reviewed by me. SOCIAL HISTORY: The patient lives with family.-Tob;-ETOH;-IVDU FAMILY HISTORY: There are no significant medical, surgical or oncologic issues in the family as reported by the patient or reflected in the chart. REVIEW OF SYSTEMS: Other than mentioned above, there were no other pertinent positives or pertinent negatives in an otherwise complete 14 point review of systems. PHYSICAL EXAMINATION GENERAL: The patient appears to be a very pleasant lady of descent lying in bed, appearing stated age, and otherwise in no acute distress. BMI: 27.8 VITAL SIGNS: AVSS (please also see auto important data if available as well as the electronic records) HEENT: Normocephalic and atraumatic. Extraocular muscles and hearing are grossly intact bilaterally and symmetrically. Sclerae are nonicteric. Oral cavity is clear; oral mucosa appear to be pink and moist. Dentition: fair. NECK: Supple. There is no lymphadenopathy or JVD. There is no submental, submandibular or supraclavicular lymphadenopathy. CHEST: Rises symmetrically with each breath; patient is breathing comfortably. There are no audible wheezes, rales or rhonchi on the gross exam. HEART: Pulse is regular and palpable on the right wrist. Capillary refill is normal. Carotid pulses are palpable bilaterally and symmetrically in the neck. EXTREMITIES: Lower extremities contain no pitting edema around the ankles bilaterally and symmetrically. ABDOMEN: Abdomen is soft, mild to moderately tender in the right upper quadrant and nondistended. No evidence of ascites, organomegaly, caput medusae , engorged subcutaneous veins, or other abnormalities. There are no peritoneal signs or guarding. SKIN: Appears to be pink and feels warm to touch. NEUROLOGIC: Awake, alert, and follows commands appropriately. LABORATORY DATA: See below IMAGING: See electronic chart. Please note that I've personally reviewed all pertinent available images and I agree in general with their overall reported findings. Initial impression and plan: Symptomatic biliary colic with likely early acute cholecystitis. Needs operative intervention. Consultation Date/Type/Reason Admit Date/Time Exam/Review of Systems Vital Signs Vitals Vital Signs Date Time Temp Pulse Resp B/P Pulse Ox O2 Delivery O2 Flow Rate FiO2 05/22/17 05:20 98.2 81 20 122/62 99 Results Result Diagram: 05/22/17 0725 05/22/17 0725 Results 24 hrs Laboratory Tests Test 05/22/17 07:15 05/22/17 07:25 Urine Color YELLOW Urine Clarity CLEAR Urine pH 5.0 Urine Specific [place] 1.013 Urine Ketones NEGATIVE Urine Nitrite NEGATIVE Urine Bilirubin NEGATIVE Urine Urobilinogen NEGATIVE Urine Leukocyte Esterase NEGATIVE Urine Hemoglobin NEGATIVE Urine Glucose NEGATIVE Urine Total Protein NEGATIVE White Blood Count 9.6 Red Blood Count 4.71 Hemoglobin 13.1 Hematocrit 39.5 Mean Corpuscular Volume 83.9 Mean Corpuscular Hemoglobin 27.8 L Mean Corpuscular Hemoglobin Concent 33.2 Red Cell Distribution Width 13.8 Platelet Count 371 Mean Platelet Volume 9.2 Neutrophils % 63.1 Lymphocytes % 24.1 Monocytes % 6.5 Eosinophils % 5.4 Basophils % 0.5 Nucleated Red Blood Cells % 0.0 Neutrophils # 6.1 Lymphocytes # 2.3 Monocytes # 0.6 Eosinophils # 0.5 Basophils # 0.1 Nucleated Red Blood Cells # 0.0 Sodium Level 138 Potassium Level 4.2 Chloride Level 105 Carbon Dioxide Level 23 Anion Gap 14 Blood Urea Nitrogen 10 Creatinine 0.56 Glucose Level 90 Calcium Level 8.7 Total Bilirubin 0.0 L Direct Bilirubin 0.00 Indirect Bilirubin 0.0 Aspartate Amino Transf (AST/SGOT) 16 Alanine Aminotransferase (ALT/SGPT) 19 Alkaline Phosphatase 88 Total Protein 8.3 H Albumin 4.4 Globulin 3.90 H Albumin/Globulin Ratio 1.12 Lipase 130 DINO OSBORNE M.D. May 22, 2017 16:43
--- NOTE | 2017-05-22 16:43 | HPN ---
Date/Time of Note Date/Time of Note DATE: 05/22/17 TIME: 16:43 Interval H&P Admission Note Pt. seen H&P reviewed: No system changes Pt. seen H&P reviewed. No system changes (I attest that I have seen and examined the patient and reviewed the operation in detail, as well as its risks , benefits and alternatives of the operation). I attest that I have seen and examined the patient and reviewed in detail the operation, and its associated risks, benefits and alternative. I have answered all the patient's questions to the best of my ability and the patient wishes to proceed. Please refer to rest of electronic medical record for additional updates. DINO OSBORNE M.D. May 22, 2017 16:43
[2017-05-22] MEDS ORDERED: ROPIVACAINE 0.5 % 30 ML VIAL ONE (19:00)
[2017-05-22] MEDS ORDERED: MIDAZOLAM 1 MG/ML 2 ML INJ ONE (19:00)
[2017-05-22] MEDS ORDERED: METOCLOPRAMIDE 10 MG INJ ONE (19:04)
[2017-05-22] MEDS ORDERED: DEXAMETHASONE 4 MG/ML 1 ML INJ ONE (19:12)
[2017-05-22] MEDS ORDERED: CEFAZOLIN 1 GM INJ ONE (19:20)
[2017-05-22] MEDS ORDERED: KETOROLAC 30 MG INJ ONE (19:20)
[2017-05-22] MEDS ORDERED: PROPOFOL 20 ML ONE (19:20)
[2017-05-22] MEDS ORDERED: ROCURONIUM 50 MG INJ ONE (19:20)
[2017-05-22] MEDS ORDERED: NEOSTIGMINE 3 MG/3 ML SYRINGE ONE (19:21)
[2017-05-22] MEDS ORDERED: GLYCOPYRROLATE 0.4 MG INJ ONE (19:21)
[2017-05-22] MEDS: BUPIVACAINE 0.25% (MPF) 30 ML INJ ONE ×2 (19:41→20:10)
[2017-05-22] MEDS ORDERED: PHENYLephrine (100 MCG/ML) 5ML SYG ONE (19:43)
[2017-05-22] MEDS ORDERED: ALBUTEROL 0.083% (NEB) 2.5 MG/3 ML AMP ONE (19:45)
[2017-05-22] MEDS ORDERED: PROVENTIL HFA 6.7GM INHALER ONE (19:45)
[2017-05-22] MEDS ORDERED: ALBUTEROL 0.083% (NEB) 2.5 MG/3 ML AMP HHN PRN (20:00)
[2017-05-22] MEDS ORDERED: MEPERIDINE 25 MG INJ IV PRN (20:00)
[2017-05-22] MEDS ORDERED: ONDANSETRON 4 MG INJ IV PRN ×3 (20:00→22:00)
[2017-05-22] MEDS ORDERED: HYDROmorphONE (0.2 MG/ML) 10ML SYG IV PRN ×3 (20:00)
[2017-05-22] MEDS ORDERED: DIPHENHYDRAMINE 50 MG INJ IV PRN (20:00)
[2017-05-22] MEDS ORDERED: EPINEPHrine 100 MCG/10 ML SYG IV ONE (20:03)
[2017-05-22] MEDS ORDERED: ACETAMINOPHEN 325 MG TAB PO PRN (20:30)
--- NOTE | 2017-05-22 20:34 | OPR ---
Date/Time of Note Date/Time of Note DATE: 05/22/17 TIME: 20:33 Operative Report Surgeon see signature line Operative\Procedure Findings [facility] INPATIENT OPERATIVE NOTE PLACE OF SERVICE: [facility] DATE OF SURGERY: 05/22/2017 PREOPERATIVE DIAGNOSIS: 1. Known cholelithiasis and 2 prior ER visits for abdominal pain related to her gallbladder 2. BMI 27.8 3. Asthma POSTOPERATIVE DIAGNOSIS: 1. Acute cholecystitis, with known cholelithiasis and 2 prior ER visits for abdominal pain related to her gallbladder 2. BMI 27.8 3. Asthma OPERATION: 1. Laparoscopic cholecystectomy SURGEON: Dino Kearney M.D. REGULATORY ASSOCIATE: None ANESTHESIA: General endotracheal tube anesthesia ANESTHESIOLOGIST: Josefa Mendoza M.D. BRIEF SUMMARY: An otherwise uncomplicated laparoscopic cholecystectomy was performed with findings of acute cholecystitis. Updated clinical summary: A very-pleasant 36-year-old lady with comorbidity of BMI 27.8 and asthma, presenting for third time through the emergency department with signs and symptoms consistent with pericolic and this admission, with acute cholecystitis. Comorbidities: 1. Known cholelithiasis and 2 prior ER visits for abdominal pain related to her gallbladder 2. BMI 27.8 3. Asthma BRIEF HISTORY: The patient is a very pleasant 36-year-old lady with comorbidity of BMI 27.8 and asthma, presenting for third time through the emergency department with signs and symptoms consistent with pericolic and this admission , with acute cholecystitis. Workup in the emergency department demonstrated evidence for cholelithiasis and cholecystitis on right upper quadrant ultrasound. Liver function and injury parameters were normal. White blood cell count was normal. I met with the patient (no family present during any of my discussions with the patient) and counseled her regarding the possible options of treatment, and I strongly suggested a laparoscopic, possible open cholecystectomy. We reviewed the operation in detail as well as the risks, benefits, alternatives, and expected outcomes of this operation. After careful consideration of all the risks, benefits, and alternatives, the patient appeared to understand those risks and wished to proceed with surgery. For a detailed report of my consultation with patient, please refer to my separate consultation note. STATEMENT OF THE INFORMED CONSENT: The patient appeared to understand the risks of the operation to include, but not be limited to risk of postoperative pain and scar tissue, possible infection or bleeding requiring other interventions such as opening the wound, placement of drainage catheters, or other operative interventions; possible injury to surrounding to structures including bowel, bladder, bile duct, or blood vessels, or solid organs such as liver, kidney, or pancreas requiring other interventions or procedures; possible leakage of bile from surgical clip sites, suture lines, or worse, from common bile duct injury, causing significant increase in morbidity and mortality and requiring multiple interventions including but not limited to, placement of drainage catheters, imaging studies, as well as operative interventions; possible other source of sepsis such as urinary tract infections or pneumonias, or other sources of potentially life threatening problems such as deep venous thrombus formation causing pulmonary embolism, myocardial arrhythmias and infarctions, and even . After careful consideration of all their options, the patient appeared to understand and wished to proceed with surgery. DESCRIPTION OF PROCEDURE: After obtaining informed consent, the patient was brought into the operating room and was placed in a normal supine position, where successful general endotracheal tube anesthesia was performed. The patient 's abdominal skin was prepped and draped, from the nipple line down to the level of the groins, in the usual sterile fashion. Intravenous access was already in place, and appropriately chosen and dosed prophylactic intravenous antimicrobials were administered. We then called a surgical time-out where patient's identification, date of , nature of the operation, allergies, presence of intravenous antimicrobials, presence of needed equipment, and any other concerns were reviewed and agreed upon by all members of the operating room team. We then started the operation by placing a 5-mm skin incision in the right- upper quadrant, subcostal midclavicular line, and introduced a 5-mm [employer] trocar into the peritoneal space, visualizing all the layers of the abdominal wall as we entered. Note that there was no indication of any injury to underlying structures once we entered the peritoneum. We insufflated the abdominal cavity to a maximum pressure of 15 mmHg, again, confirmed lack of any injury to underlying structures prior to visualizing the rest of the abdominal cavity. We found the fundus of the gallbladder to be visible. There was no evidence of malignancy. No evidence of calcifications or significant issues with adhesions, or other abnormalities. The liver appeared to be healthy. With this information, we went a head and placed the other trocars under direct visualization, after injecting their sites with 0.25% Marcaine with epinephrine , placing a 5-mm trocar in the umbilical midline area, a 5-mm trocar in the right anterior axillary line, and a 12-mm trocar in the midline subxiphoid region. With our instruments in place, we had excellent visualization and access to the right-upper quadrant. We then we grasped the fundus of the gallbladder and pointed up towards the right-upper quadrant. There was mild omental adhesions onto the infundibulum which we took down with judicious use of cautery, as well as meticulous blunt dissection. We were then able to grasp the infundibulum and pull it out in order to expose the critical triangle of Calot. We then placed our usual serosal cuts along the long axis of the gallbladder 1 cm away from its attachment to the liver bed up towards the fundus, and then joined these 2 lines under the infundibulum, taking care not to deliver any energy to underlying structures. We then performed meticulous dissection to identify and circumferentially isolate both the cystic duct and cystic artery, prior to transecting them between 2 surgical Endoclips, proximally and one distally on the cystic artery and 3 surgical endoclips proximally and one distally on the cystic duct, transecting both using cold scissors, and only after making sure that these were the only 2 structures going into the gallbladder. We then shaved the gallbladder off the gallbladder bed using cautery, and then delivered it out inside of an EndoCatch bag through the 12-mm trocar site without enlarging the fascia or contaminating the wound. The gallbladder was sent to Pathology for evaluation. Returning to the abdominal cavity, we ensured that there was adequate hemostasis and bile-stasis prior to removal of all of or equipment, including the pneumoperitoneum, and then reapproximating the 12-mm trocar site with one [id number] 0 Vicryl suture, followed by washing the wounds with copious amounts of normal saline, and then reapproximating the skin using interrupted 4- 0 Monocryl sutures. Light dressing was then applied. At the end of the operation, both the sponge count and needle count were reportedly correct x2. The patient tolerated the procedure without any reported complications. ESTIMATED BLOOD LOSS: Less than 10 mL. BLOOD OR BLOOD PRODUCT TRANSFUSIONS: None to my knowledge. SPECIMENS: 1. Gallbladder COMPLICATIONS: None. DISPOSITION: Recovery area. Disclaimers: 1. Inadvertent spelling and grammatical errors are likely due to electronic health record (EHR)/dictation software use and do not reflect on the quality of delivered patient care. 2. The electronic timestamp recorded on this note does not necessarily reflect the actual date and time of the visit. 3. Portions of this note are created through electronic templates and computer algorithms that may bring in information either from the system or from other physicians and providers that are outside of my control and may not be always accurate. In general (but not always) this happens either in the beginning or at the end of the note. My portions of the gathered data are generally dictated in 1 continuous block of text and entered into one field in the EHR. 4. There may be other unanticipated errors in the note that are outside of my control. I can only attest to the portions of the note that I have created. DINO KEARNEY M.D. May 22, 2017 20:34
[2017-05-22] MEDS ORDERED: MEPERIDINE 25 MG INJ ONE (20:51)
[2017-05-22] MEDS ORDERED: HYDROCODONE/APAP (5/325) TAB PO PRN (21:00)
[2017-05-22] MEDS ORDERED: HYDROmorphONE 1 MG/ML SYG IV PRN (21:00)
[2017-05-22] MEDS ORDERED: DOCUSATE SODIUM 100 MG CAP PO PRN (21:00)
[2017-05-22] MEDS ORDERED: NA PHOSPHATE/BIPHOS 133 ML ENEMA PR PRN (21:00)
[2017-05-22] MEDS ORDERED: BISACODYL 10 MG SUPP PR PRN (21:00)
[2017-05-22] MEDS: D5W-0.45 NACL + KCL 20 MEQ 1,000 ML IV SCH (22:38)
[2017-05-23 01:54] VITALS: BP 116/71; RESP 20
--- NOTE | 2017-05-23 02:22 | HP ---
Date/Time of Note Date/Time of Note DATE: 05/23/17 TIME: 01:43 Assessment/Plan VTE Prophylaxis VTE Prophylaxis Intervention: LMWH Lines/C[facility]ters [facility] IV Urinary Cath still in place: No Assessment/Plan Chief Complaint/Hosp Course This is a 36-year-old female being admitted to the [facility] floor for: #1 acute cholecystitis: Patient is postop day 0 status post a lap cholecystectomy. Will continue IV pain control as per surgery recommendations. Will initiate diet as per surgery recommendations. We will continue to monitor the patient repeat CBC and a BMP in the a.m. #2 asthma: Stable, patient apparently is not on any inhalers at this time will have to reconfirm the patient in the a.m. #3 hypothyroidism: Patient reports history of hypothyroidism. Will check a TSH and a T3-T4 level. She is not currently on any medications however will need to confirm this in the morning again. #4 DVT and GI prophylaxis: Lovenox, acid tiffany Further treatment strategy will be implemented as per the clinical course Problems: HPI/ROS Admit Date/Time Admit Date/Time Hx of Present Illness Chief complaint: Abdominal pain The this is a 36-year-old lady who presented for third time through the emergency department with signs and symptoms consistent with right upper quadrant abdominal pain. The patient described having 1-2 day history of sharp right upper quadrant abdominal pain without significant radiation, associated with multiple episodes of nausea and vomiting. No diarrhea or constipation. No blood in the stool or urine. Workup in the emergency department demonstrated evidence for cholelithiasis and cholecystitis on right upper quadrant ultrasound. Liver function and injury parameters were normal. White blood cell count was normal. Patient was subsequently taken to the OR and had laparoscopic cholecystectomy performed by Dr. Kearney. Patient currently right now is postop and is doing well. Allergies: NKDA Medications: None ROS Const: As per HPI Eyes : No pain discharge or redness or change in visual acuity ENT: No pain, sore throat, congestion, congestion, dysphagia or discharge Respiratory: No shortness of breath, cough, sputum, wheezing, or pleuritic pain Cardiovascular: No chest pain, palpitation, PND, or edema GI : As per HPI Genitourinary: No dysuria, hematuria, flank pain , discharge or CVA tenderness Musculoskeletal: No joint pain, back pain, neck pain, restricted range of motion in neck or joints Skin: No rash, bruising or hives Neuro: No headache, dizziness, syncope, seizure, focal weakness Endocrine: No polyuria, polydipsia, temperature intolerance Psych: No hallucination, depression, anxiety or suicidal ideation PMH/Family/Social Past Medical History asthma, hypothyroidism Past Surgical History Past Surgical Hx: cholecystectomy Family History Significant Family History: diabetes Social History Alcohol Use: occasionally Smoking Status: Never smoker Drug Use: none Exam/Review of Systems Vital Signs Vitals Vital Signs Date Time Temp Pulse Resp B/P Pulse Ox O2 Delivery O2 Flow Rate FiO2 05/22/17 23:00 92 18 122/71 100 Nasal Cannula 2.0 05/22/17 21:58 97.7 Intake and Output 05/22/17 05/22/17 05/23/17 15:00 23:00 07:00 Intake Total 1000 ml Output Total 5 ml Balance 995 ml Exam Exam General: Patient is a pleasant female postop surgery lying in bed in no acute distress. HEENT: Atraumatic, normocephalic. The pupils are equal, round and reactive. Extraocular motor are intact Neck: Supple with full range of motion. No rigidity or meningismus Chest: Nontender Lungs: Clear to auscultation bilaterally no crackles rales or wheezing Heart: Normal S1-S2, Regular rhythm and rate. No murmur, S3, or S4 Abdomen: Soft, mild tenderness to palpation at the site of surgery, laparoscopic laparoscopic site dressings clean and dry and intact Extremities: Normal to inspection, no edema no cyanosis Neurologic: Normal mental status, speech normal, cranial nerves II through XII are intact, motor and sensory are intact, no focal weakness Additional Comments PROCEDURE: US Abdomen. CLINICAL INDICATION: abdominal pain TECHNIQUE: Multiple real-time images were acquired of the patient's right upper quadrant abdomen and retroperitoneum utilizing a high resolution transducer. COMPARISON: US ABDOMEN 05/10/2017 FINDINGS: The liver demonstrates normal echogenicity. The liver is normal in size and no focal solid lesions are seen. The liver measures 16.1 cm in length. The portal vein is patent with normal direction of flow. No intrahepatic biliary dilatation is seen. Multiple stones are seen within the gallbladder. The gallbladder wall is thickened, measuring 4.6 mm. There is mild pericholecystic fluid noted. The common bile duct measures 4 mm. The visualized portions of the pancreas are unremarkable. The tail of the pancreas is not seen. No free fluid is identified. The right kidney is normal in size, and demonstrate normal echogenicity and cortical thickness. The right kidney measures 11.3 cm in long dimension. There is no evidence of hydronephrosis. There are no kidney stones. RPTAT: AA IMPRESSION: Cholelithiasis with gallbladder wall thickening and pericholecystic fluid may represent acute cholecystitis. This could be confirmed with a HIDA scan if clinically indicated.. .Gordy Guzman MD, MD Date Time Electronically viewed and signed by .Gordy Guzman MD, on 05/22/2017 09: 13 .S/ CC: ANGELITO CAVAZOS PA-C Labs Result Diagram: 05/22/17 0725 05/22/17 0725 Medications Medications Current Medications Potassium Chloride/Dextrose/ Sod Cl (D5-1/2ns + KCl 20 Meq) 1,000 ml @ 100 mls/ hr Q10H IV Last administered on 05/22/17t 22:38; Admin Dose 100 MLS/HR; Start 05/22/17 at 23:30 Acetaminophen/ Hydrocodone Bitart ([place] (5/325)) 1 tab Q4H PRN PO PAIN LEVEL 4 -7; Start 05/22/17 at 21:00 Acetaminophen/ Hydrocodone Bitart ([place] (5/325)) 2 tab Q4H PRN PO PAIN LEVEL 7 -10; Start 05/22/17 at 21:00 Hydromorphone HCl (Dilaudid) 0.5 mg Q2H PRN IV PAIN; Start 05/22/17 at 21:00 Hydromorphone HCl (Dilaudid) 1 mg Q2H PRN IV PAIN; Start 05/22/17 at 21:00 Docusate Sodium (Colace) 100 mg BID PRN PO CONSTIPATION; Start 05/22/17 at 21: 00 Bisacodyl (Dulcolax Supp) 10 mg BID PRN [place] CONSTIPATION; Start 05/22/17 at 21: 00 Sodium Biphosphate/ Sodium Phosphate (Fleet Enema) 133 ml BID PRN DC CONSTIPATION; Start 05/22/17 at 21:00 Famotidine (Pepcid Iv) 20 mg DAILY IV ; Start 05/23/17 at 09:00 Enoxaparin Sodium (Lovenox) 40 mg DAILY SC ; Start 05/23/17 at 09:00 Ondansetron HCl (Zofran Inj) 4 mg Q4H PRN IV N/V; Start 05/22/17 at 22:00 AL HERNANDEZ May 23, 2017 01:54
[2017-05-23 06:00] VITALS: BP 120/81; PULSE 88; RESP 18
[2017-05-23 06:26] LABS: BASOPHILS % 0.2 % (0.0-2.0); HEMATOCRIT 36.1 % (37.0-47.0); HEMOGLOBIN 11.9 g/dl (12.0-16.0); LYMPHOCYTES % 8.6 % (15.0-51.0); MEAN CORPUSCULAR HEMOGLOBIN 27.2 pg (29.0-33.0); MEAN CORPUSCULAR VOLUME 82.6 fl (82.0-101.0); MEAN PLATELET VOLUME 9.1 fl (7.4-10.4); MONOCYTE # 0.4 10^3/ul (0.3-0.9); MONOCYTES % 3.6 % (0.0-11.0); NEUTROPHIL # 10.2 10^3/ul (1.6-7.5); NEUTROPHILS % 87.2 % (39.0-77.0); PLATELET COUNT 368 10^3/UL (140-415); RED BLOOD COUNT 4.37 10^6/ul (4.20-5.40); RED CELL DISTRIBUTION WIDTH 13.7 % (11.5-14.5); WHITE BLOOD COUNT 11.7 10^3/ul (4.8-10.8)
[2017-05-23 06:39] LABS: CALCIUM 7.9 mg/dl (8.4-10.2); MAGNESIUM 2.1 mg/dl (1.7-2.5); PHOSPHORUS 2.4 mg/dl (2.5-4.9)
[2017-05-23 06:44] LABS: ALBUMIN 3.8 g/dl (3.3-4.9); ALBUMIN/GLOBULIN RATIO 1.05; BILIRUBIN,INDIRECT 0.2 mg/dl (0-1.1); BILIRUBIN,TOTAL 0.2 mg/dl (0.2-1.3); CREATININE 0.5 mg/dl (0.44-1.00); POTASSIUM 4.3 mmol/L (3.5-5.1); TOTAL PROTEIN 7.4 g/dl (6.1-8.1)
[2017-05-23 07:49] VITALS: BP 109/62; RESP 18
[2017-05-23] MEDS: D5W-0.45 NACL + KCL 20 MEQ 1,000 ML IV SCH ×2 (08:30→18:36)
[2017-05-23] MEDS: FAMOTIDINE 20 MG INJ IV SCH (08:31)
[2017-05-23] MEDS: ENOXAPARIN 40 MG/0.4 ML SYG SC SCH (08:38)
--- NOTE | 2017-05-23 11:22 | PN ---
Date/Time of Note Date/Time of Note DATE: 05/23/17 TIME: 11:19 Assessment/Plan VTE Prophylaxis VTE Prophylaxis Intervention: SCD's Lines/Catheters [facility] Peripheral IV Urinary Cath still in place: No Assessment/Plan Chief Complaint/Hosp Course Assessment and plan: 1. Acute on chronic cholecystitis Multiple ER visits secondary to abdominal pain General surgery has been consulted N.p.o., IV fluids, pain medication, Follow up general surgery recommendation for possible laparoscopic versus open cholecystectomy 2. History of hypothyroidism Follow-up thyroid panel Restart home medication when obtain the dosage DVT prophylaxis on SCD Problems: Subjective 24 Hr Interval Summary Free Text/Dictation She continues to complain of having abdominal discomfort No nausea vomiting or diarrhea Denies any chest pain or shortness of breath Exam/Review of Systems Vital Signs Vitals Vital Signs Date Time Temp Pulse Resp B/P Pulse Ox O2 Delivery O2 Flow Rate FiO2 05/23/17 07:49 98.5 86 18 109/62 99 05/23/17 06:00 Nasal Cannula 2.0 Intake and Output 05/22/17 05/22/17 05/23/17 15:00 23:00 07:00 Intake Total 1000 ml 900 ml Output Total 5 ml Balance 995 ml 900 ml Exam General: The patient is well-developed, Not in acute distress. HEENT: Atraumatic, normocephalic. The pupils are equal and round . Neck: Supple with full range of motion. Chest: Normal expansion of the thorax during inspiration Lungs: Clear to auscultation bilaterally Heart: Normal S1-S2, Regular rhythm and rate. Abdomen: Soft , mild midepigastric abdominal pain and deep palpation, nondistended , bowel sounds are present. Extremities: Normal to inspection, no edema no cyanosis Neurologic: Normal mental status,The patient is awake, alert and oriented . Results Result Diagram: 05/23/17 0549 05/23/17 0549 Results 24 hrs Laboratory Tests Test 05/23/17 05:49 White Blood Count 11.7 #H Red Blood Count 4.37 Hemoglobin 11.9 L Hematocrit 36.1 L Mean Corpuscular Volume 82.6 Mean Corpuscular Hemoglobin 27.2 L Mean Corpuscular Hemoglobin Concent 33.0 Red Cell Distribution Width 13.7 Platelet Count 368 Mean Platelet Volume 9.1 Neutrophils % 87.2 H Lymphocytes % 8.6 L Monocytes % 3.6 Eosinophils % 0.0 Basophils % 0.2 Nucleated Red Blood Cells % 0.0 Neutrophils # 10.2 H Lymphocytes # 1.0 Monocytes # 0.4 Eosinophils # 0.0 Basophils # 0.0 Nucleated Red Blood Cells # 0.0 Sodium Level 138 Potassium Level 4.3 Chloride Level 105 Carbon Dioxide Level 24 Anion Gap 13 Blood Urea Nitrogen 6 L Creatinine 0.50 Glucose Level 150 Hemoglobin A1c 5.4 Calcium Level 8.0 L Phosphorus Level 2.4 L Magnesium Level 2.1 Total Bilirubin 0.2 Direct Bilirubin 0.00 Indirect Bilirubin 0.2 Aspartate Amino Transf (AST/SGOT) 38 Alanine Aminotransferase (ALT/SGPT) 34 Alkaline Phosphatase 57 Total Protein 7.4 Albumin 3.8 Globulin 3.60 H Albumin/Globulin Ratio 1.05 Thyroid Stimulating Hormone (TSH) 0.529 Free Thyroxine 0.75 L Free Triiodothyronine (T3) pg/mL 3.51 Medications Medications Current Medications Potassium Chloride/Dextrose/ Sod Cl (D5-1/2ns + KCl 20 Meq) 1,000 ml @ 100 mls/ hr Q10H IV Last administered on 05/23/17 08:30; Admin Dose 100 MLS/HR; Start 05/22/17 at 23:30 Acetaminophen/ Hydrocodone Bitart ([place] (5/325)) 1 tab Q4H PRN PO PAIN LEVEL 4 -7 Last administered on 05/23/17 09:49; Admin Dose 1 TAB; Start 05/22/17 at 21: 00 Acetaminophen/ Hydrocodone Bitart ([place] (5/325)) 2 tab Q4H PRN PO PAIN LEVEL 7 -10; Start 05/22/17 at 21:00 Hydromorphone HCl (Dilaudid) 0.5 mg Q2H PRN IV PAIN; Start 05/22/17 at 21:00 Hydromorphone HCl (Dilaudid) 1 mg Q2H PRN IV PAIN; Start 05/22/17 at 21:00 Docusate Sodium (Colace) 100 mg BID PRN PO CONSTIPATION; Start 05/22/17 at 21: 00 Bisacodyl (Dulcolax Supp) 10 mg BID PRN [place] CONSTIPATION; Start 05/22/17 at 21: 00 Sodium Biphosphate/ Sodium Phosphate (Fleet Enema) 133 ml BID PRN SD CONSTIPATION; Start 05/22/17 at 21:00 Famotidine (Pepcid Iv) 20 mg DAILY IV Last administered on 05/23/17 08:31; Admin Dose 20 MG; Start 05/23/17 at 09:00 Enoxaparin Sodium (Lovenox) 40 mg DAILY SC Last administered on 05/23/17 08:38 ; Admin Dose 40 MG; Start 05/23/17 at 09:00 Ondansetron HCl (Zofran Inj) 4 mg Q4H PRN IV N/V; Start 05/22/17 at 22:00 SARAH HENRY MD May 23, 2017 11:22
[2017-05-23] MEDS: HYDROmorphONE 1 MG/ML SYG IV PRN ×3 (11:46→22:18)
[2017-05-23 14:00] VITALS: BP 111/60; RESP 18
[2017-05-23 20:03] VITALS: BP 112/68; RESP 18
--- NOTE | 2017-05-23 20:24 | PN ---
Date/Time of Note Date/Time of Note DATE: 05/23/17 TIME: 20:23 Assessment/Plan Lines/Catheters IV Catheter Type (from Nrsg): Peripheral IV Zaragoza in Place (from Nrsg): No Assessment/Plan Assessment/Plan [facility] Progress Note Date of Service: 05/23/2017 Place of service: [facility] 6 floor Today's Assessment & Plan: Overall stable and doing well. Abdomen appears to be benign. Pain control is the main issue. No indication for acute surgical intervention. With above assessment, I've recommended the following for today: 1. Continue current cares 2. Keep in-house 3. Advance diet 4. Increase incentive spirometry 5. Possible discharge planning for tomorrow Thank you again for your great care of this very pleasant patient and wonderful family. If there are any questions, please feel free to call me at [phone]. Nature of presenting problem: Moderate to high severity Please note that, given the multiple number of diagnoses or management options, the moderate amount and/or complexity of data needed to be reviewed, and moderate to high risk of complications and/or morbidity or mortality, this qualifies as moderate complexity type of decision-making. Disclaimers: 1. Inadvertent spelling and grammatical errors are likely due to electronic health record (EHR)/dictation software use and do not reflect on the quality of delivered patient care. 2. The electronic timestamp recorded on this note does not necessarily reflect the actual date and time of the visit. 3. Portions of this note are created through electronic templates and computer algorithms that may bring in information either from the system or from other physicians and providers that are outside of my control and may not be always accurate. In general (but not always) this happens either in the beginning or at the end of the note. My portions of the gathered data are generally dictated in 1 continuous block of text and entered into one field in the EHR. 4. There may be other unanticipated errors in the note that are outside of my control. I can only attest to the portions of the note that I have created. Updated clinical summary: A very-pleasant 36-year-old lady with comorbidity of BMI 27.8 and asthma, presenting for third time through the emergency department with signs and symptoms consistent with pericolic and this admission, with acute cholecystitis. Comorbidities: 1. Acute cholecystitis, with known cholelithiasis and 2 prior ER visits for abdominal pain related to her gallbladder. S/p laparoscopic cholecystectomy 05/23 2. BMI 27.8 3. Asthma Subjective: No major events or complaints; mild to moderate abd pain and under control with medications; no n/v/d; no sob or cp; - flatus; - BM; - activity Objective: Vitals: See below I's & O's: See below Exam: GENERAL: On exam, the patient was lying in bed and appeared to be comfortable and in no acute distress. ABDOMEN: Soft, nontender and nondistended. Incision dressings are clean, dry and intact without any obvious evidence of underlying erythema, edema, discharge , or hernia. There are no peritoneal signs or guarding. SKIN: Skin appears to be pink and feels warm to touch. NEUROLOGIC: Patient is awake, alert, and follows commands appropriately. Labs: See below Exam/Review of Systems Vital Signs Vitals Vital Signs Date Time Temp Pulse Resp B/P Pulse Ox O2 Delivery O2 Flow Rate FiO2 05/23/17 20:03 98.7 72 18 112/68 96 05/23/17 06:00 Nasal Cannula 2.0 Intake and Output 05/22/17 05/22/17 05/23/17 15:00 23:00 07:00 Intake Total 1000 ml 900 ml Output Total 5 ml Balance 995 ml 900 ml Results Result Diagram: 05/23/17 0549 05/23/17 0549 DINO OSBORNE M.D. May 23, 2017 20:24
[2017-05-23] MEDS: HYDROCODONE/APAP (5/325) TAB PO PRN (21:16)
[2017-05-24 02:04] VITALS: BP 103/60; RESP 16
[2017-05-24] MEDS: D5W-0.45 NACL + KCL 20 MEQ 1,000 ML IV SCH (04:28)
[2017-05-24 06:38] LABS: BASOPHILS % 0.4 % (0.0-2.0); EOSINOPHILS # 0.2 10^3/ul (0.0-0.5); EOSINOPHILS % 2.8 % (0.0-7.0); HEMATOCRIT 31.2 % (37.0-47.0); HEMOGLOBIN 10.3 g/dl (12.0-16.0); LYMPHOCYTES # 3.2 10^3/ul (0.8-2.9); LYMPHOCYTES % 40.9 % (15.0-51.0); MEAN CORPUSCULAR HEMOGLOBIN 27.7 pg (29.0-33.0); MEAN CORPUSCULAR VOLUME 83.9 fl (82.0-101.0); MEAN PLATELET VOLUME 9.1 fl (7.4-10.4); MONOCYTE # 0.6 10^3/ul (0.3-0.9); MONOCYTES % 7.1 % (0.0-11.0); NEUTROPHIL # 3.8 10^3/ul (1.6-7.5); NEUTROPHILS % 48.5 % (39.0-77.0); PLATELET COUNT 285 10^3/UL (140-415); RED BLOOD COUNT 3.72 10^6/ul (4.20-5.40); RED CELL DISTRIBUTION WIDTH 14.3 % (11.5-14.5); WHITE BLOOD COUNT 7.9 10^3/ul (4.8-10.8)
[2017-05-24 08:03] LABS: ALBUMIN 3.2 g/dl (3.3-4.9); ALBUMIN/GLOBULIN RATIO 1.1; CALCIUM 8.3 mg/dl (8.4-10.2); CREATININE 0.56 mg/dl (0.44-1.00); POTASSIUM 4.1 mmol/L (3.5-5.1); TOTAL PROTEIN 6.1 g/dl (6.1-8.1)
[2017-05-24 08:35] VITALS: BP 101/60; PULSE 72; RESP 18
[2017-05-24] MEDS: FAMOTIDINE 20 MG INJ IV SCH (08:37)
[2017-05-24] MEDS: ENOXAPARIN 40 MG/0.4 ML SYG SC SCH (08:40)
[2017-05-24] MEDS: HYDROmorphONE 1 MG/ML SYG IV PRN (11:22)
[2017-05-24] MEDS ORDERED: HYDR-3498 PO (13:26)
--- NOTE | 2017-05-24 13:32 | DS ---
Date/Time of Note Date/Time of Note DATE: 05/24/17 TIME: 13:28 Discharge Summary Admission/Discharge Info Admit Date/Time May 22, 2017 at 20:06 Discharge Date/Time Discharge Diagnosis 1. Acute cholecystitis with cholelithiasis, s/p lap cholecystectomy on 05/23/2017 , follow up with Dr. Kearney in one week 2. Asthma, stable Hospital Course The this is a 36-year-old lady who presented for third time through the emergency department with signs and symptoms consistent with right upper quadrant abdominal pain. The patient described having 1-2 day history of sharp right upper quadrant abdominal pain without significant radiation, associated with multiple episodes of nausea and vomiting. No diarrhea or constipation. No blood in the stool or urine. Workup in the emergency department demonstrated evidence for cholelithiasis and cholecystitis on right upper quadrant ultrasound. Liver function and injury parameters were normal. White blood cell count was normal. Patient was subsequently taken to the OR and had laparoscopic cholecystectomy performed by Dr. Kearney on 05/23/2017 without complication. Patient tolerates diet, passes flatus. she will follow up with Dr. Kearney in one week.. Home Meds Active Scripts Hydrocodone Bit-Acetaminophen (Hydrocodone Bit-APAP) 5-325MG Tablet, 1 TAB PO Q4H Y for PAIN LEVEL 4-7, #20 TAB Prov:MELINA SWEENEY MD 05/24/17 Discontinued Scripts Azithromycin* (Zithromax*) 500 Mg Tablet, 1000 MG PO ONCE, #1 TAB Prov:CYNDEE LOMBARDI MD 05/10/17 Ondansetron Hcl* (Zofran*) 4 Mg Tablet, 4 MG PO TID for VOMITTING, #15 TAB Prov:CYNDEE LOMBARDI MD 05/10/17 Oxycodone HCl/Acetaminophen (Percocet 5-325 mg Tablet) 1 Each Tablet, 1 EACH PO TID for PAIN, #12 TAB Prov:CYNDEE LOMBARDI MD 05/10/17 Albuterol Sulfate* (Ventolin HFA*) 18 Gm Hfa.aer.ad, 2 PUFF INHALATION Q4H for 5 Days, #1 INHALER Prov:NEL HALL MD 02/24/17 Ciprofloxacin Hcl* (Ciprofloxacin Hcl*) 500 Mg Tablet, 500 MG PO BID for 10 Days , TAB Prov:NEL HALL MD 02/24/17 Tramadol HCl (Tramadol HCl) 50 Mg Tablet, 50 MG PO Q4 Y for PAIN, #15 TAB Prov:NEL HALL MD 02/24/17 Follow-up Plan Dr. Kearney in one week Primary Care Provider Care Physician No Primary Pending Labs Laboratory Tests Test 05/24/17 05:59 05/24/17 06:05 White Blood Count 7.910^3/ul (4.8-10.8) Red Blood Count 3.7210^6/ul (4.20-5.40) Hemoglobin 10.3g/dl (12.0-16.0) Hematocrit 31.2% (37.0-47.0) Mean Corpuscular Volume 83.9fl (82.0-101.0) Mean Corpuscular Hemoglobin 27.7pg (29.0-33.0) Mean Corpuscular Hemoglobin Concent 33.0g/dl (32.0-37.0) Red Cell Distribution Width 14.3% (11.5-14.5) Platelet Count 31142^3/UL (140-415) Mean Platelet Volume 9.1fl (7.4-10.4) Neutrophils % 48.5% (39.0-77.0) Lymphocytes % 40.9% (15.0-51.0) Monocytes % 7.1% (0.0-11.0) Eosinophils % 2.8% (0.0-7.0) Basophils % 0.4% (0.0-2.0) Nucleated Red Blood Cells % 0.0/100WBC (0.0-0.0) Neutrophils # 3.810^3/ul (1.6-7.5) Lymphocytes # 3.210^3/ul (0.8-2.9) Monocytes # 0.610^3/ul (0.3-0.9) Eosinophils # 0.210^3/ul (0.0-0.5) Basophils # 0.010^3/ul (0.0-0.1) Nucleated Red Blood Cells # 0.010^3/ul (0.0-0.0) Sodium Level 137mmol/L (135-144) Potassium Level 4.1mmol/L (3.5-5.1) Chloride Level 106mmol/L (97-110) Carbon Dioxide Level 26mmol/L (21-31) Anion Gap 9 (8-16) Blood Urea Nitrogen 7mg/dl (7-20) Creatinine 0.56mg/dl (0.44-1.00) Glucose Level 111mg/dl (70-220) Calcium Level 8.3mg/dl (8.4-10.2) Total Bilirubin 0.0mg/dl (0.2-1.3) Direct Bilirubin 0.00mg/dl (0.00-0.20) Indirect Bilirubin 0.0mg/dl (0-1.1) Aspartate Amino Transf (AST/SGOT) 26IU/L (15-46) Alanine Aminotransferase (ALT/SGPT) 28IU/L (13-69) Alkaline Phosphatase 54IU/L (42-121) Total Protein 6.1g/dl (6.1-8.1) Albumin 3.2g/dl (3.3-4.9) Globulin 2.90g/dl (1.3-3.2) Albumin/Globulin Ratio 1.10 MELINA SWEENEY MD May 24, 2017 13:32
--- NOTE | 2017-05-24 15:03 | PN ---
Date/Time of Note Date/Time of Note DATE: 05/24/17 TIME: 15:01 Assessment/Plan Lines/Catheters IV Catheter Type (from Nrsg): Peripheral IV Zaragoza in Place (from Nrsg): No Assessment/Plan Assessment/Plan [facility] Progress Note Date of Service: 05/24/2017 Place of service: [facility] 6 floor Today's Assessment & Plan: Overall stable and doing well. Abdomen appears to be benign. Pain control is improved. No indication for acute surgical intervention. Ok to d/c home. With above assessment, I've recommended the following for today: 1. D/c home 2. Please include the following the patient's discharge instructions: "Please call [phone] if any of fever, nausea, vomiting, discharge from wound, wound redness, increase or sudden pain, blood in stool or vomit, or any other unusual signs or symptoms. Also, please call the same number in a few days to schedule an appointment for your follow up visit. Patient may remove dressings tomorrow. Showers OK starting tomorrow. No swimming , hot tub or bath for 2 weeks. No lifting more than 25 lbs for 8 weeks." Thank you again for your great care of this very pleasant patient and wonderful family. If there are any questions, please feel free to call me at [phone]. Nature of presenting problem: Moderate to high severity Please note that, given the multiple number of diagnoses or management options, the moderate amount and/or complexity of data needed to be reviewed, and moderate to high risk of complications and/or morbidity or mortality, this qualifies as moderate complexity type of decision-making. Disclaimers: 1. Inadvertent spelling and grammatical errors are likely due to electronic health record (EHR)/dictation software use and do not reflect on the quality of delivered patient care. 2. The electronic timestamp recorded on this note does not necessarily reflect the actual date and time of the visit. 3. Portions of this note are created through electronic templates and computer algorithms that may bring in information either from the system or from other physicians and providers that are outside of my control and may not be always accurate. In general (but not always) this happens either in the beginning or at the end of the note. My portions of the gathered data are generally dictated in 1 continuous block of text and entered into one field in the EHR. 4. There may be other unanticipated errors in the note that are outside of my control. I can only attest to the portions of the note that I have created. Updated clinical summary: A very-pleasant 36-year-old lady with comorbidity of BMI 27.8 and asthma, presenting for third time through the emergency department with signs and symptoms consistent with pericolic and this admission, with acute cholecystitis. Comorbidities: 1. Acute cholecystitis, with known cholelithiasis and 2 prior ER visits for abdominal pain related to her gallbladder. S/p laparoscopic cholecystectomy 05/23 2. BMI 27.8 3. Asthma Subjective: No major events or complaints; no major abd pain and under control with medications; no n/v/d; no sob or cp; + flatus; - BM; + activity Objective: Vitals: See below I's & O's: See below Exam: GENERAL: On exam, the patient was lying in bed and appeared to be comfortable and in no acute distress. ABDOMEN: Soft, nontender and nondistended. Incision dressings d/c'd and incisions are clean, dry and intact without any obvious evidence of erythema, edema, discharge, or hernia. There are no peritoneal signs or guarding. SKIN: Skin appears to be pink and feels warm to touch. NEUROLOGIC: Patient is awake, alert, and follows commands appropriately. Labs: See below Exam/Review of Systems Vital Signs Vitals Vital Signs Date Time Temp Pulse Resp B/P Pulse Ox O2 Delivery O2 Flow Rate FiO2 05/24/17 08:35 98.4 72 18 101/60 98 Room Air 05/23/17 06:00 2.0 Intake and Output 05/23/17 05/23/17 05/24/17 15:00 23:00 07:00 Intake Total 700 ml 1660 ml 1460 ml Output Total 10 ml Balance 700 ml 1650 ml 1460 ml Results Result Diagram: 05/24/17 0559 05/24/17 0605 DINO OSBORNE M.D. May 24, 2017 15:03
[2017-05-24] MEDS: HYDROCODONE/APAP (5/325) TAB PO PRN (15:53)
== END 2017-05-24 17:00 | disposition home or self-care (01) | DRG 419 ==
LOC: FTE 05:03 → MS2 18:20
PROVIDERS: ADMIT Family Medicine; ATTEND Family Medicine
PROC: 0FT44ZZ Resection of Gallbladder, Percutaneous Endoscopic Approach (ICD-10-PCS; principal; 2017-05-22 16:00)
DX: K80.00 Calculus of gallbladder with acute cholecystitis without obstruction (principal); E03.9 Hypothyroidism, unspecified; J45.909 Unspecified asthma, uncomplicated
CPT/HCPCS: 36415; 76705; 80053; 81003; 82310; 83036; 83690; 83735; 84100; 84439; 84443; 84481; 85025; 88304; 93005; 96374; 96375; J0171; J0690; J1100; J1170; J1650; J1885; J2175; J2250; J2270; J2370; J2405; J2710; J2765; J2795; J3480; J7030